=== PATIENT | male | born 1975 | race Two or more races ===

== ENCOUNTER 2017-04-25 13:48 | Emergency (ER) | payer OTHER ==
[2017-04-25 13:52] VITALS: BP 127/79; PULSE 106; TEMP 98.2; BMI 329.2
--- NOTE | 2017-04-25 14:18 | PDOC ---
History of Present Illness - General Chief Complaint: Injury Stated Complaint: PAIN Time Seen by Provider: 04/25/17 14:03 History Source: Patient Exam Limitations: No Limitations - History of Present Illness Initial Comments: 04/25/17 14:13 41 yr male with c/o trip and stubbing right 3rd toe one week ago continued pain. no swelling or deformity. Past History - Past Medical History Allergies/Adverse Reactions: Allergies Allergy/AdvReac Type Severity Reaction Status Date / Time No Known Allergies Allergy Verified 04/25/17 13:49 Home Medications: Ambulatory Orders Oxycodone HCl/Acetaminophen [Percocet 5/325 -] 1 tab PO Q6H PRN #12 tablet 07/18 GI Disorders: Yes (GASTRITIS) - Psycho/Social/Smoking Cessation Hx Anxiety: No Suicidal Ideation: No Smoking Status: Yes (1 YEAR QUIT) Smoking History: Never smoked Have you smoked in the past 12 months: No Number of Cigarettes Smoked Daily: 0 Information on smoking cessation initiated: No Hx Alcohol Use: No Drug/Substance Use Hx: No Substance Use Type: Alcohol Trauma Specific PMHX - Complaint Specific PMHX Arthritis: No Back Injury: No Neck Injury: No Hx Sacro Iliac Joint Dysfunction: No Review of Systems - Review of Systems Able to Perform ROS?: Yes Is the patient limited [place] proficient: No Constitutional: No: Symptoms Reported HEENTM: No: Symptoms Reported Respiratory: No: Symptoms reported Cardiac (ROS): No: Symptoms Reported ABD/GI: No: Symptoms Reported : No: Symptoms Reported Musculoskeletal: Yes: Symptoms Reported, See HPI *Physical Exam - Vital Signs Last Vital Signs Temp Pulse Resp BP Pulse Ox 98.2 F 106 H 18 127/79 100 04/25/17 13:50 04/25/17 13:50 04/25/17 13:50 04/25/17 13:50 04/25/17 13:50 - Physical Exam General Appearance: Yes: Nourished, Appropriately Dressed HEENT: positive: EOMI, ESTEFANIA Neck: positive: Supple Respiratory/Chest: positive: Lungs Clear Cardiovascular: positive: Regular Rhythm, Regular Rate Musculoskeletal: positive: Normal Inspection Extremity: positive: Normal Capillary Refill, Normal Inspection, Normal Range of Motion, Tender (right third toe tender to touch DIP, PIP,) Integumentary: positive: Normal Color, Dry, Warm Neurologic: positive: Fully Oriented, Alert, Normal Mood/Affect, Normal Response , Motor Strength 02/18 ED Treatment Course - RADIOLOGY Radiology Studies Ordered: Category Date Time Status TOE(S) RIGHT [RAD] Stat Radiology 04/25/17 14:11 Ordered Medical Decision Making - Medical Decision Making 04/25/17 14:20 cc: injured right third toe one week ago has continued pain skin intact no redness, no swelling nail intact will xray to r/o fracture 04/25/17 14:43 will hernán tape the toes follow with the employee benefits administrator for follow up *DC/Admit/Observation/Transfer Diagnosis at time of Disposition: Toe joint pain Qualifiers: Laterality: right Qualified Code(s): M25.571 - Pain in right ankle and joints of right foot - Discharge Dispostion Disposition: HOME Condition at time of disposition: Good - Referrals Referrals: Deacon Saldana MD [Staff Physician] - - Patient Instructions Additional Instructions: keep the hernán toes taped follow with the employee benefits administrator for follow up
== END 2017-04-25 14:54 | disposition home or self-care (01) ==
LOC: JERFT 13:48
DX: M25.571 Pain in right ankle and joints of right foot (principal); W18.09XA Striking against other object with subsequent fall, initial encounter; Y93.89 Activity, other specified; Y92.89 Other specified places as the place of occurrence of the external cause
CPT/HCPCS: 73660-TC; 99281-25